=== PATIENT | female | born 1935 | race Two or more races ===

== ENCOUNTER → 2016-09-07 | Emergency (ER) | payer MEDICARE, OTHER ==
[~2016-09-07] VITALS: Ht 162.6 cm; Wt 72.6 kg
[~2016-09-07] MED LIST: ACETAMINOPHEN 160 MG/5 ML ONE; ACETAMINOPHEN 650 MG/20 ML UDC- FOR SA PATIENTS ONLY GT PRN; AMLO10TA2 PO; ASPI-605 PO; ATOR10TA PO; Acyclovir PO; BACL10TA PO; DOCU-170 PO; DONE10TA44 PO; FESO4TAB PO; GABA300C PO; IV SET PRIMARY PUMP SET 1 EA INFUS.SET MC ONE; LEVOFLOXACIN 750 MG /D5W 150ML 150 ML IV ONE; MEMA10TA PO; OMEG500C PO; SERT50TA PO; TRAZ-144 PO; TYL2T PO; VITA400C19 PO
[2016-09-07 15:59] LABS: BASOPHILS % (AUTO) 0.3 % (0.0-2.0); EOSINOPHILS % (AUTO) 1.5 % (0.0-6.0); HEMATOCRIT 37 % (33-45); HEMOGLOBIN 12.8 g/dL (11.5-14.8); LYMPHOCYTES # (AUTO) 0.7 /CMM (0.8-4.8); LYMPHOCYTES % (AUTO) 21.5 % (20.0-44.0); MEAN CORPUSCULAR HEMOGLOBIN 31 PG (26.0-33.0); MEAN CORPUSCULAR HGB CONC 34 g/dl (31.0-36.0); MEAN CORPUSCULAR VOLUME 90 fL (82-100); MONOCYTES # (AUTO) 0.2 /CMM (0.1-1.30); MONOCYTES % (AUTO) 5.5 % (2.0-12.0); NEUTROPHILS # (AUTO) 2.2 /CMM (1.8-8.9); NEUTROPHILS % (AUTO) 71.2 % (43.0-81.0); PLATELET COUNT (AUTO) 142 /CMM (150-450); RDW COEFFICIENT OF VARIATION 13.7 (11.5-15.0); RED BLOOD CELL COUNT(AUTO) 4.16 MIL/uL (4.0-5.2); WHITE BLOOD COUNT (AUTO) 3.1 K/uL (4.3-11.0)
--- NOTE | 2016-09-07 16:00 | NUR ---
PT REC'D TO ER VIA EMS PT COMES FROM HOME LIVES WITH SON . PT HAS HX DEMENTIA DOENT SPEAK . GITUBE ABD EXTREMITES VERY CONTRATED . CAPONE CATH INPLACE UA CLOUDY SENT TO LAB . SON STATED PT HAD UTI 4N WEEKS AGO/. LEFT ARM DOSENT MOVE NEW TO FAMILY IV STARTED RT AC 22G IVP AND LEFT AC 18G LABS AND BLOOD CULTURES DONE RECTAL TEMP 99.4 SKIN WARM TO TOUCH RECTUM HEALED ULCER . NO BM TODAY .AWAITING EVALUATION BY ER PROVIDER.
[2016-09-07 16:01] LABS: APPEARANCE,URINE SL CLOUDY (CLEAR); BILIRUBIN,URINE NEGATIVE (NEGATIVE); BLOOD, URINE TRACE Ery/uL (NEGATIVE); COLOR,URINE YELLOW (YELLOW); KETONES,URINE NEGATIVE (NEGATIVE); LEUKOCYTE ESTERASE ,URINE 3+ (NEGATIVE); NITRITE, URINE POSITIVE (NEGATIVE); PH,URINE 7.5 (5.0-8.0); PROTEIN,URINE NEGATIVE (NEGATIVE); UGLUCOSE NEGATIVE (NEGATIVE); UROBILINOGEN,URINE 0.2 EU/dL (0.2)
[2016-09-07 16:04] LABS: ALANINE AMINOTRANSFERASE 17 U/L (12-78); ALBUMIN 3.9 g/dL (3.4-5.0); ALKALINE PHOSPHATASE 68 U/L (46-116); ASPARTATE AMINOTRANSFERASE 17 U/L (15-37); BILIRUBIN,DIRECT 0.1 mg/dL (0.0-0.2); BILIRUBIN,TOTAL 0.4 mg/dL (0.2-1.0); CARBON DIOXIDE 31 mmol/L (21-32); CHLORIDE 103 mmol/L (98-107); CREATININE 0.7 mg/dL (0.6-1.3); GLUCOSE 129 mg/dL (74-106); POTASSIUM 4.5 mmol/L (3.5-5.1); SODIUM SERUM 142 mmol/L (136-145); TOTAL PROTEIN, SERUM 7.5 g/dL (6.4-8.2); UREA NITROGEN, BLOOD 14 mg/dL (7-18)
[2016-09-07 16:07] LABS: TROPONIN I < 0.017 ng/mL (0.00-0.056)
[2016-09-07 16:30] LABS: BACTERIA,URINE 3+ /HPF (None Seen); SQUAMOUS EPITHELIAL CELL,UR 0-2 /HPF (None Seen)
[2016-09-07 16:31] LABS: INR 0.96 (0.87-1.13); PROTHROMBIN TIME 10.3 SECS (9.5-12.7)
--- NOTE | 2016-09-07 16:47 | NUR ---
PT BACK FROM CT RA 97 SATS FAMILY AT BEDSIDE . LEAVQUIN GIVEN PER MD ORDER AWAITING EVALUATION BY ER PROVIDER.
[2016-09-07 16:48] VITALS: BP 140/70
--- NOTE | 2016-09-07 17:08 | NUR ---
PER FAMILY, PT'S PRIMARY PHYSICIAN IS DR CHELSEA CHENG. CALLED DR CHENG, TRANSFERRED TO DR ELAM
--- NOTE | 2016-09-07 17:27 | NUR ---
ARRANGED FOR BLS WITH [facility]. ETA 20 MINUTES
--- NOTE | 2016-09-09 15:19 | NUR ---
Urine culture shows + for E. Coli ESBL: resistant to Levaquin (the patient was given prescription Levaquin in the ER and disharged home) - the patient is also under HOSPICE care called the patient's - [facility]- [phone] called the PMRao Velazquez MD - [phone]; spoke to the national secretary with orders to fax the urine culture results to - [phone] called [facility] (Hospice company) at [phone]- I spoke to Yamile; she ordered to have the urine culture results be faxed to [phone]
== END | disposition home or self-care (01) ==
LOC: ER 15:31
DX: N39.0 Urinary tract infection, site not specified (principal); Z88.0 Allergy status to penicillin; E78.5 Hyperlipidemia, unspecified; F03.90 Unspecified dementia, unspecified severity, without behavioral disturbance, psychotic disturbance, mood disturbance, and anxiety; Z79.82 Long term (current) use of aspirin
CPT/HCPCS: 36415; 70450-TC; 71010-TC; 80048-TC; 80076-TC; 81000-TC; 83605-TC; 84484-TC; 85025-TC; 85730-TC; 87040-TC; 87081-TC; 87086-TC; 87186-TC; A4606; J1956; Z7610

== ENCOUNTER 2016-11-09 18:47 | Inpatient (IN) | payer MEDICARE, OTHER ==
[~2016-11-09] VITALS: Ht 160 cm; Wt 71.7 kg
[~2016-11-09 18:47] MED LIST changes: -ACETAMINOPHEN 160 MG/5 ML ONE; -ACETAMINOPHEN 650 MG/20 ML UDC- FOR SA PATIENTS ONLY GT PRN; +ASPI-605 GT; -ASPI-605 PO; -IV SET PRIMARY PUMP SET 1 EA INFUS.SET MC ONE; -LEVOFLOXACIN 750 MG /D5W 150ML 150 ML IV ONE; +SERT50TA GT; -SERT50TA PO
--- NOTE | 2016-11-09 18:52 | NUR ---
JONATHAN 88FROM PMD OFFICE FOR VERIFICATION ON PRESCRIBED ABX FROM PMD. PT ON HOSPICE AND DNR ON POLST. AWAITING MD ORDER
--- NOTE | 2016-11-09 19:03 | NUR ---
DR. GOODEN AT BEDSIDE FOR EVAL.
--- NOTE | 2016-11-09 19:04 | NUR ---
GAVE REPORT TO JOSÉ ANTONIO FOR DANIEL
[2016-11-09] MEDS ORDERED: AZTREONAM 2 G in IV NS 0.9% 100 ML IV ONE (19:30)
[2016-11-09] MEDS ORDERED: VANCOMYCIN 1 GM in IV D5W 250 ML IV ONE (19:30)
[2016-11-09] MEDS ORDERED: IV NS 0.9% 1,000 ML BAG IV ONE (19:30)
[2016-11-09 19:31] LABS: BASOPHILS % (AUTO) 0.2 % (0.0-2.0); EOSINOPHILS # (AUTO) 0.1 /CMM (0.0-0.7); HEMATOCRIT 36 % (33-45); HEMOGLOBIN 12.3 g/dL (11.5-14.8); LYMPHOCYTES % (AUTO) 18.8 % (20.0-44.0); MEAN CORPUSCULAR HEMOGLOBIN 31 PG (26.0-33.0); MEAN CORPUSCULAR HGB CONC 34 g/dl (31.0-36.0); MEAN CORPUSCULAR VOLUME 92 fL (82-100); MONOCYTES # (AUTO) 0.4 /CMM (0.1-1.30); MONOCYTES % (AUTO) 7.8 % (2.0-12.0); NEUTROPHILS # (AUTO) 3.9 /CMM (1.8-8.9); NEUTROPHILS % (AUTO) 72.2 % (43.0-81.0); PLATELET COUNT (AUTO) 139 /CMM (150-450); RDW COEFFICIENT OF VARIATION 14.3 (11.5-15.0); RED BLOOD CELL COUNT(AUTO) 3.96 MIL/uL (4.0-5.2); WHITE BLOOD COUNT (AUTO) 5.4 K/uL (4.3-11.0)
[2016-11-09] MEDS ORDERED: AZTREONAM 1 G VIAL ONE (19:41)
[2016-11-09 19:44] LABS: CALCIUM, SERUM 9.2 mg/dL (8.5-10.1); CARBON DIOXIDE 30 mmol/L (21-32); CHLORIDE 101 mmol/L (98-107); CREATININE 0.9 mg/dL (0.6-1.3); GLUCOSE 88 mg/dL (74-106); POTASSIUM 4.2 mmol/L (3.5-5.1); SODIUM SERUM 139 mmol/L (136-145); UREA NITROGEN, BLOOD 17 mg/dL (7-18)
[2016-11-09 19:48] LABS: TROPONIN I < 0.017 ng/mL (0.00-0.056)
[2016-11-09 19:50] LABS: ALANINE AMINOTRANSFERASE 19 U/L (12-78); ALBUMIN 4.1 g/dL (3.4-5.0); ALKALINE PHOSPHATASE 61 U/L (46-116); ASPARTATE AMINOTRANSFERASE 17 U/L (15-37); BILIRUBIN,DIRECT 0.1 mg/dL (0.0-0.2); BILIRUBIN,TOTAL 0.3 mg/dL (0.2-1.0); TOTAL PROTEIN, SERUM 7.6 g/dL (6.4-8.2)
--- NOTE | 2016-11-09 19:55 | NUR ---
COLLECTED URINE VIA F/C PER MD. CALLED LAB FOR OPERATOR COATING FURNACE.
[2016-11-09 20:00] LABS: APPEARANCE,URINE Clear (CLEAR); BILIRUBIN,URINE Negative (NEGATIVE); BLOOD, URINE Negative Ery/uL (NEGATIVE); COLOR,URINE Yellow (YELLOW); KETONES,URINE Negative (NEGATIVE); LEUKOCYTE ESTERASE ,URINE Large (NEGATIVE); NITRITE, URINE Positive (NEGATIVE); PROTEIN,URINE Negative (NEGATIVE); UGLUCOSE Negative (NEGATIVE); UROBILINOGEN,URINE 0.2 EU/dL (0.2)
[2016-11-09 20:16] LABS: RBC,URINE NONE SEEN /HPF (0-2)
[2016-11-09 20:17] LABS: BACTERIA,URINE Many /HPF (None Seen); SQUAMOUS EPITHELIAL CELL,UR Moderate /HPF (None Seen); WBC,URINE 81-100 /HPF (0-3)
--- NOTE | 2016-11-09 20:28 | NUR ---
PT DAUGHTER REQUESTING PAIN MEDICATION FOR PT, STATING PT IS MOANING AND TURNING RED ALL DAY. DR. GOODEN NOTIFIED.
[2016-11-09 20:34] LABS: INR 1.01 (0.87-1.13); PROTHROMBIN TIME 10.8 SECS (9.5-12.7)
[2016-11-09] MEDS ORDERED: KETOROLAC TROMETHAMINE 15 MG/ML VIAL ONE (20:53)
--- NOTE | 2016-11-09 20:56 | NUR ---
308-2 MS UPDATED BED
[2016-11-09] MEDS ORDERED: KETOROLAC TROMETHAMINE INJ 30 MG/ML VIAL IV ONE (21:00)
[2016-11-09] MEDS ORDERED: MORP30TA GT (21:27)
[2016-11-09] MEDS ORDERED: LORA1TAB82 GT ×2 (21:27)
[2016-11-09] MEDS ORDERED: LEVO500T90 GT (21:27)
[2016-11-09] MEDS ORDERED: CARI350T GT (21:27)
[2016-11-09] MEDS ORDERED: HYDR-548 GT (21:27)
[2016-11-09] MEDS ORDERED: OMEP40CA37 GT (21:27)
[2016-11-09] MEDS ORDERED: SULF1TAB48 GT (21:27)
--- NOTE | 2016-11-09 21:43 | NUR ---
REPORT GIVEN TO FELICIA CRUZ.
--- NOTE | 2016-11-09 21:49 | NUR ---
[facility]
[2016-11-09] MEDS ORDERED: ONDANSETRON HCL/PF 4 MG/2 ML VIAL IV PRN (22:00)
[2016-11-09] MEDS ORDERED: MORPHINE SULFATE INJ 2 MG/ML DISP.SYRIN IV PRN (22:00)
[2016-11-09] MEDS ORDERED: ACETAMINOPHEN 325 MG TABLET PO PRN (22:00)
[2016-11-09] MEDS ORDERED: AMLO10TA2 GT (22:20)
--- NOTE | 2016-11-09 22:20 | NUR ---
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 IV ON RIGHT WRIST IS PATENT AND INTACT, WILL CONNECT THE FLUID. CAPONE CATH PRESENT WITH CLEAR YELLOW URINE WITH SMALL SEDIMENT. SACRAL WOUND NOTED, PICTURE TAKE AND PUT IT IN THE CHART, APPLIED MEPILEX WELL. G TUBE IS PATENT AND FLUSHED WITH WATER, CHANGED DRESSING. SRX2, BED IN LOW POSITION, CALL LIGHT WITHIN REACH, WILL CONTINUE TO MONITOR PATIENT.
[2016-11-09] MEDS ORDERED: IV NS 0.9% 1,000 ML IV SCH (22:30)
[2016-11-09] MEDS ORDERED: IV NS 0.9% 50 ML IV SCH (22:30)
[2016-11-09] MEDS ORDERED: LORAZEPAM INJ 2 MG/ML VIAL ONE (22:39)
[2016-11-09] MEDS ORDERED: ENOXAPARIN SODIUM 40 MG/0.4 ML DISP.SYRIN SQ ONE (22:40)
[2016-11-09] MEDS: ENOXAPARIN SODIUM 40 MG/0.4 ML DISP.SYRIN SQ SCH (22:40)
[2016-11-09] MEDS: LORAZEPAM INJ 2 MG/ML VIAL IV PRN (22:41)
--- NOTE | 2016-11-09 22:45 | NUR ---
MS RN NOTE PATIENT LOOKS ANXIOUS, BLUSHING, HAS LABORED BREATHING. ATIVAN 0.5MG IVP GIVEN. WILL MONITOR EFFECTIVENESS.
[2016-11-09 23:00] VITALS: BP 133/69
--- NOTE | 2016-11-09 23:00 | NUR ---
MS RN NOTE POLST PAPER OF DNR/COMFORT CARE ONLY PRESENT, HOSPICE CARE AT HOME, NO CODE STATUS ORDER FROM MD YET. FOLLOWED UP WITH PATIENT'S FAMILY REGARDING HER CODE STATUS, PER PATIENT'S DAUGHTER, SHE WANTS THE PATIENT TO BE IN FULL CODE DURING THE HOSPITALIZATION. WILL ENDORSE TO DAY SHIFT NURSE TO F/U WITH DR. CHENG. ALSO F/U WITH HER GT FEEDING AT HOME, AND PUT IT IN HOME MED RECON. DIETARY CONSULT ORDERED WELL.
[2016-11-09] MEDS ORDERED: HYDROCODONE/APAP 5/325MG 1 EACH TABLET ONE (23:19)
[2016-11-09] MEDS: HYDROCODONE/APAP 5/325MG 1 EACH TABLET PO PRN (23:22)
[2016-11-09] MEDS ORDERED: [UNRECOGNIZED DRUG - CODE] GT (23:30)
--- NOTE | 2016-11-09 23:30 | NUR ---
MS RN NOTE PER PATIENT'S FAMILY, PATIENT IS IN GENERALIZED PAIN, WANTS TO GIVE NORCO. NORCO 5-325MG GT GIVEN. WILL REASSESS EFFECTIVENESS.
--- NOTE | 2016-11-10 04:48 | NUR ---
MS RN NOTE PER INSTRUCTOR OF SOCIOLOGY, PRIMAXIN 500MG IV ABX IS NOT AVAILABLE DURING THE ELECTRIC TAPE SLITTER, UNABLE TO ADMINISTER IT FOR 0500.
[2016-11-10] MEDS ORDERED: IMIPENEM/CILASTATIN 500 MG in IV NS 0.9% 100 ML IV SCH (05:00)
--- NOTE | 2016-11-10 06:42 | NUR ---
MS RN NOTE PATIENT IS RESTING IN BED COMFORTABLY, NO S/S OF RESPIRATORY DISTRESS AND NO FACIAL GRIMACE AT THIS TIME. IV ON RIGHT WRIST IS PATENT AND INTACT, FLUID IS RUNNING. WILL ENDORSE TO DAY SHIFT NURSE FOR DANIEL.
--- NOTE | 2016-11-10 07:05 | NUR ---
MS RN INITIAL NOTES REPORT RECEIVED AT THE BEDSIDE. PATIENT IS SLEEPING. NO SOB OR DISTRESS NOTED AT THIS TIME. PATIENT DOES NOT APPEAR TO BE IN PAIN, NO FACIAL GRIMACE NOTED. BED IN A LOW POSITION, CALL LIGHT IS WITHIN PATIENT REACH, FAMILY IS AT THE BEDSIDE. WILL CONTINUE TO MONITOR.
[2016-11-10] MEDS ORDERED: PANTOPRAZOLE 40 MG TABLET.DR PO SCH (07:30)
[2016-11-10] MEDS ORDERED: IV NS 0.9% 1,000 ML IV PRN (07:37)
[2016-11-10 08:00] VITALS: BP 132/66
--- NOTE | 2016-11-10 08:13 | NUR ---
WOUND CARE CONSULT: PT PRESENTS WITH STAGE 2 ULCER TO SACRUM, PRESENT ON ADMISSION. SOME THICKENED SCARRING NOTED TO AREA. PT HAS SEVERE CONTRACTURE OF LEFT LOWER EXTREMITY WITH SMALL SCAR TO LEFT HEEL. OFFLOADING DIFFICULT DUE TO SEVERE CONTRACTURE. ALL SKIN PROTECTION AND WOUND RECOMMENDATIONS DISCUSSED WITH NURSING STAFF. WILL SEE PRN. GUEVARA IN AGREEMENT WITH PLAN OF CARE. CURRENT TREVOR SCORE IS 9. FIRST STEP MATTRESS ORDERED. Addendum: 11/10/16 at 0816 by JOSY ASHFORD WNDNU Amended: Links added.
[2016-11-10] MEDS ORDERED: HYDROGEL DRESSING 90 GM TUBE TP PRN (08:30)
[2016-11-10] MEDS ORDERED: Z GUARD REMEDY 2 OZ OINT TP PRN (08:30)
[2016-11-10] MEDS: Z GUARD REMEDY 2 OZ OINT TP SCH (09:27)
[2016-11-10] MEDS: MEROPENEM 500 MG in IV NS 0.9% 50 ML IV SCH ×2 (09:27→21:28)
[2016-11-10] MEDS: BACLOFEN (10 MG) 10 MG TABLET PO SCH ×3 (09:28→16:25)
[2016-11-10] MEDS: CARISOPRODOL 350 MG TABLET GT SCH ×2 (09:28→16:24)
[2016-11-10] MEDS: HYDROGEL DRESSING 90 GM TUBE TP SCH (09:28)
[2016-11-10] MEDS: ASPIRIN 81 MG TAB.CHEW PO SCH (09:28)
[2016-11-10] MEDS: PANTOPRAZOLE 40 MG/PACK PACK GT SCH (09:28)
--- NOTE | 2016-11-10 11:20 | NUR ---
RN NOTES [facility] MATTRESS OVERLAY PLACED PER ORDER.
[2016-11-10] MEDS ORDERED: NUTREN PULMONARY 1,000 ML BAG GT PRN (12:30)
--- NOTE | 2016-11-10 12:30 | NUR ---
RN NOTES CALLED DR CHENG FOR ORDERS ON TUBE FEEDING AND TO INFORM OF MEDS THAT STILL NEED TO BE RECONCILED. MD STATES TO START ON NUTREEN AT 30ML/HR. MD STATES HE WILL DEAL WITH MEDS WHEN HE COMES TO SEE THE PATIENT THIS AFTERNOON.
--- NOTE | 2016-11-10 12:31 | NUR ---
RN NOTES ALSO EXPLAINED TO THE MD THAT THE PATIENT'S DAUGHTER WISHES TO HAVE THE PATIENT FULL CODE WHILE IN THE HOSPITAL. MD STATES TO MAKE PATIENT FULL CODE.
[2016-11-10 16:00] VITALS: BP 133/53
[2016-11-10] MEDS: HYDROCODONE/APAP 5/325MG 1 EACH TABLET PO PRN (16:25)
[2016-11-10] MEDS: LORAZEPAM INJ 2 MG/ML VIAL IV PRN (17:27)
[2016-11-10] MEDS ORDERED: HYDROCODONE/APAP 10/325MG 1 EA TABLET PO SCH (18:00)
--- NOTE | 2016-11-10 18:07 | NUR ---
RN NOTES DR CHENG ON FLOOR. INFORMED MD THAT PATIENT WAS GIVEN NORCO LESS THAN 2 HOURS AGO. MD CHANGED NORCO TO SCHEDULED. MD STATES TO SKIP THE DOSE AT 1800 AND TO WAIT FOR THE NEXT DOSE.
[2016-11-10] MEDS ORDERED: DOCUSATE SODIUM 100 MG CAPSULE PO SCH (18:30)
[2016-11-10] MEDS ORDERED: HYDROCODONE/APAP 5/325MG 1 EACH TABLET GT PRN (18:52)
[2016-11-10] MEDS: HYDROCODONE/APAP 10/325MG 1 EA TABLET GT SCH (18:53)
[2016-11-10] MEDS ORDERED: ACETAMINOPHEN 650 MG/20.3 ML UDC GT PRN (19:00)
--- NOTE | 2016-11-10 19:02 | NUR ---
MS RN CLOSING NOTES NO CHANGES IN PATIENT CONDITION THROUGHOUT THE SHIFT. NO SOB OR DISTRESS NOTED AT THIS TIME. PATIENT SLEEPING AND DOES NOT APPEAR TO BE IN PAIN. BED IN A LOW POSITION, CALL LIGHT WITHIN PATIENT REACH, FAMILY AT THE BEDSIDE. WILL ENDORSE FOR DANIEL.
[2016-11-10 20:00] VITALS: BP 115/52
--- NOTE | 2016-11-10 20:54 | NUR ---
MS RN INITIAL NOTE PT RECEIVED IN BED WITH CAREGIVER AT BEDSIDE. NON VERBAL WITH OPEN EYES. ON 3L OF O2 VIA NASAL CANNULA AND SATURATING AT 98%. NO C/O OF DISCOMFORT AT THIS TIME. BREATHING IS REGULAR, EVEN AND UNLABORED. IV INTACT, CLEAN AND FLUSHING WELL. GTUBE CLEAN, INTACT WITHOUT RESIDUALS NOTED AND FLUSHING WELL. CAPONE CATHETER IN PLACE AND DRAINING BY GRAVITY. ASPIRATION PRECAUTIONS OBSERVED. CALL LIGHT WITHIN REACH. WILL CONTINUE TO MONITOR.
[2016-11-10] MEDS: SERTRALINE HCL 50 MG TABLET GT SCH (21:28)
[2016-11-10] MEDS: LORAZEPAM 1 MG TABLET GT SCH (21:29)
[2016-11-10] MEDS: ENOXAPARIN SODIUM 40 MG/0.4 ML DISP.SYRIN SQ SCH (21:31)
[2016-11-11] MEDS: HYDROCODONE/APAP 10/325MG 1 EA TABLET GT SCH ×4 (00:06→18:20)
--- NOTE | 2016-11-11 06:57 | NUR ---
MS RN CLOSING NOTE PT REMAINED STABLE DURING SHIFT. CAREGIVER AT BEDSIDE. NO SOB NOTED. ALL DUE MEDS GIVEN ORDERED AND WELL TOLERATED. ALL SAFETY MEASURES IN PLACE. IV SITE INTACT AND PATENT. GTUBE IN PLACE AND NO RESIDUALS NOTED. CAPONE CATHETER IN PLACE. CALL LIGHT WITHIN REACH. WILL ENDORSE TO NEXT SHIFT FOR CONTINUITY OF CARE.
--- NOTE | 2016-11-11 07:05 | NUR ---
MS RN INITIAL NOTES REPORT RECEIVED AT THE BEDSIDE. PATIENT IS RESTING COMFORTABLY IN BED. NO SOB OR DISTRESS. PATIENT IS A LITTLE AGITATED AT THIS TIME. CAREGIVER STATES THIS IS PAIN BEHAVIOR; WILL FOLLOW UP WITH PAIN MEDICATIONS. BED IN A LOW POSITION, CALL CAREGIVER AT THE BEDSIDE. WILL CONTINUE TO MONITOR.
[2016-11-11 07:20] LABS: BASOPHILS % (AUTO) 0.9 % (0.0-2.0); EOSINOPHILS # (AUTO) 0.1 /CMM (0.0-0.7); EOSINOPHILS % (AUTO) 2.4 % (0.0-6.0); HEMATOCRIT 32 % (33-45); LYMPHOCYTES # (AUTO) 0.8 /CMM (0.8-4.8); LYMPHOCYTES % (AUTO) 26.5 % (20.0-44.0); MEAN CORPUSCULAR HEMOGLOBIN 32 PG (26.0-33.0); MEAN CORPUSCULAR HGB CONC 35 g/dl (31.0-36.0); MEAN CORPUSCULAR VOLUME 92 fL (82-100); MONOCYTES # (AUTO) 0.2 /CMM (0.1-1.30); MONOCYTES % (AUTO) 8.3 % (2.0-12.0); NEUTROPHILS # (AUTO) 1.8 /CMM (1.8-8.9); NEUTROPHILS % (AUTO) 61.9 % (43.0-81.0); PLATELET COUNT (AUTO) 119 /CMM (150-450); RDW COEFFICIENT OF VARIATION 14.4 (11.5-15.0); RED BLOOD CELL COUNT(AUTO) 3.48 MIL/uL (4.0-5.2); WHITE BLOOD COUNT (AUTO) 2.8 K/uL (4.3-11.0)
[2016-11-11 07:43] LABS: ALANINE AMINOTRANSFERASE 19 U/L (12-78); ALBUMIN 3.3 g/dL (3.4-5.0); ALKALINE PHOSPHATASE 55 U/L (46-116); ASPARTATE AMINOTRANSFERASE 19 U/L (15-37); BILIRUBIN,TOTAL 0.3 mg/dL (0.2-1.0); CALCIUM, SERUM 8.3 mg/dL (8.5-10.1); CARBON DIOXIDE 30 mmol/L (21-32); CHLORIDE 106 mmol/L (98-107); CREATININE 0.6 mg/dL (0.6-1.3); GLUCOSE 102 mg/dL (74-106); POTASSIUM 3.8 mmol/L (3.5-5.1); SODIUM SERUM 142 mmol/L (136-145); TOTAL PROTEIN, SERUM 6.4 g/dL (6.4-8.2); UREA NITROGEN, BLOOD 12 mg/dL (7-18)
[2016-11-11 07:56] LABS: THYROID STIMULATING HORMONE 2.203 uIU/mL (0.358-3.74)
[2016-11-11 08:00] VITALS: BP 144/68
[2016-11-11 08:22] LABS: BAND % (MANUAL) 5 % (0.0-5.0); EOSINOPHILS % (MANUAL) 3 % (0-4); LYMPHOCYTES % (MANUAL) 27 % (16-48); MONOCYTES % (MANUAL) 9 % (0-11.0); NEUTROPHILS % (MANUAL) 56 (42-76)
[2016-11-11] MEDS: DOCUSATE SODIUM LIQ 100 MG/10 ML UDC NG SCH ×2 (08:35→16:38)
[2016-11-11] MEDS: CARISOPRODOL 350 MG TABLET GT SCH ×2 (08:35→16:38)
[2016-11-11] MEDS: PANTOPRAZOLE 40 MG/PACK PACK GT SCH (08:35)
[2016-11-11] MEDS: ASPIRIN 81 MG TAB.CHEW PO SCH (08:35)
[2016-11-11] MEDS: AMLODIPINE BESYLATE 5 MG TABLET GT SCH (08:36)
[2016-11-11] MEDS: SENNOSIDES/DOCUSATE SODIUM 1 TAB TABLET GT SCH (08:36)
[2016-11-11] MEDS: BACLOFEN (10 MG) 10 MG TABLET GT SCH ×2 (08:36→16:38)
[2016-11-11] MEDS: MULTIVITAMINS,THERAGRAN 1 UDTAB TABLET GT SCH (08:36)
[2016-11-11] MEDS: ASCORBIC ACID 500 MG TABLET GT SCH (08:36)
[2016-11-11] MEDS: HYDROGEL DRESSING 90 GM TUBE TP SCH (08:37)
[2016-11-11] MEDS: Z GUARD REMEDY 2 OZ OINT TP SCH (08:37)
[2016-11-11] MEDS: MEROPENEM 500 MG in IV NS 0.9% 50 ML IV SCH ×2 (08:42→20:45)
[2016-11-11] MEDS: NUTREN PULMONARY 1,000 ML BAG GT PRN (15:24)
--- NOTE | 2016-11-11 15:55 | NUR ---
RN NOTES PATIENT PLACED UNDER ISOLATION FOR ESBL URINE. DR CHENG CALLED AND MADE AWARE. NO CHANGES IN PATIENT ABX TREATMENT. MD ALSO AWARE OF 2.8 WBC COUNT.
[2016-11-11 16:00] VITALS: BP 135/47
[2016-11-11] MEDS ORDERED: LORAZEPAM INJ 2 MG/ML VIAL IV PRN (18:00)
--- NOTE | 2016-11-11 18:41 | NUR ---
MS RN CLOSING NOTE NO SIGNIFICANT CHANGE IN PATIENT CONDITION THROUGHOUT THE SHIFT. NO SOB OR DISTRESS NOTED. PATIENT DOES NOT APPEAR TO BE IN PAIN, NO FACIAL GRIMACE NOTED. BED IN LOW POSITION, CAREGIVER AT THE BEDSIDE. WILL ENDORSE FOR DANIEL.
--- NOTE | 2016-11-11 19:45 | NUR ---
MS/RN OPENING NOTES PATIENT AWAKE, ALERTX1, HOB ELEVATED. FAMILY AT BEDSIDE. RESPIRATIONS EVEN AN UNLABORED. SKIN WARM TO TOUCH, ON GTUBE FEEDING RUNNING AT 40ML/HR, NO RESIDUAL, MONITORING FOR ANY S/S OF DISCOMFORT. ON PAIN MANAGEMENT MONITORING FOR EFFECTIVENESS.
[2016-11-11 20:00] VITALS: BP 125/68
[2016-11-11] MEDS: SERTRALINE HCL 50 MG TABLET GT SCH (21:31)
[2016-11-11] MEDS: LORAZEPAM 1 MG TABLET GT SCH (21:31)
[2016-11-11] MEDS: ENOXAPARIN SODIUM 40 MG/0.4 ML DISP.SYRIN SQ SCH (21:53)
--- NOTE | 2016-11-11 22:00 | NUR ---
ms/rn notes temperature at 99.2 deg f, patient provided cooling measures, tylenol prn given given, kept comfortable and will continue monitoring. Skin warm to touch.
[2016-11-12] MEDS: HYDROCODONE/APAP 10/325MG 1 EA TABLET GT SCH ×4 (00:38→18:07)
--- NOTE | 2016-11-12 06:22 | NUR ---
308-2 ms/rn closing notes patient hob elevated, able to sleep atleast 7 hours, respirations even and unlabored, reposition for comfort, skin warm to touch, gtube residual zero, patent, rosen cathether w/ urine output , on routine pain mgmt will endorse to am rn for ervin.
--- NOTE | 2016-11-12 07:40 | NUR ---
MS RN OPENING NOTE PATIENT IS ALERT AND ORIENTED x1. NON-VERBAL, OPENS EYES. CAREGIVER AT BEDSIDE. CALL LIGHT WITHIN REACH. SAFETY MEASURES AND ASPIRATION PRECAUTIONS IMPLEMENTED. IV INTACT AND PATENT NO REDNESS OR SWELLING NOTED, FLUSHES WELL. CAPONE CATHETER IN PLACE, NO CLOUDY APPEARANCE OR SEDIMENT NOTED. WOUND TREATMENT TO BE DONE AND WHEN SOILED. PATIENT HAS CONTRACTION ON LEFT ARM. G-TUBE INTACT AND PATENT NO REDNESS OR SWELLING, G-TUBE FEEDING RUNNING AT THIS TIME. NO FACIAL GRIMACING NOTED FOR PAIN. NO SOB OR DISTRESS NOTED. WILL CONTINUE TO MONITOR
[2016-11-12 07:48] LABS: BASOPHILS % (AUTO) 0.7 % (0.0-2.0); EOSINOPHILS # (AUTO) 0.1 /CMM (0.0-0.7); EOSINOPHILS % (AUTO) 2.1 % (0.0-6.0); HEMATOCRIT 34 % (33-45); HEMOGLOBIN 11.8 g/dL (11.5-14.8); LYMPHOCYTES # (AUTO) 0.8 /CMM (0.8-4.8); MEAN CORPUSCULAR HEMOGLOBIN 31 PG (26.0-33.0); MEAN CORPUSCULAR HGB CONC 34 g/dl (31.0-36.0); MEAN CORPUSCULAR VOLUME 91 fL (82-100); MONOCYTES # (AUTO) 0.3 /CMM (0.1-1.30); NEUTROPHILS % (AUTO) 64.2 % (43.0-81.0); PLATELET COUNT (AUTO) 120 /CMM (150-450); RDW COEFFICIENT OF VARIATION 14.5 (11.5-15.0); RED BLOOD CELL COUNT(AUTO) 3.78 MIL/uL (4.0-5.2); WHITE BLOOD COUNT (AUTO) 3.1 K/uL (4.3-11.0)
[2016-11-12 07:58] LABS: CALCIUM, SERUM 8.4 mg/dL (8.5-10.1); CARBON DIOXIDE 31 mmol/L (21-32); CHLORIDE 106 mmol/L (98-107); CREATININE 0.5 mg/dL (0.6-1.3); GLUCOSE 119 mg/dL (74-106); SODIUM SERUM 142 mmol/L (136-145); UREA NITROGEN, BLOOD 13 mg/dL (7-18)
[2016-11-12 08:00] VITALS: BP 140/84
[2016-11-12] MEDS: CARISOPRODOL 350 MG TABLET GT SCH ×2 (09:03→16:42)
[2016-11-12] MEDS: DOCUSATE SODIUM LIQ 100 MG/10 ML UDC NG SCH ×2 (09:03→16:42)
[2016-11-12] MEDS: ASPIRIN 81 MG TAB.CHEW PO SCH (09:04)
[2016-11-12] MEDS: PANTOPRAZOLE 40 MG/PACK PACK GT SCH (09:04)
[2016-11-12] MEDS: MULTIVITAMINS,THERAGRAN 1 UDTAB TABLET GT SCH (09:04)
[2016-11-12] MEDS: BACLOFEN (10 MG) 10 MG TABLET GT SCH ×2 (09:04→16:42)
[2016-11-12] MEDS: SENNOSIDES/DOCUSATE SODIUM 1 TAB TABLET GT SCH (09:04)
[2016-11-12] MEDS: ASCORBIC ACID 500 MG TABLET GT SCH (09:04)
[2016-11-12] MEDS: HYDROGEL DRESSING 90 GM TUBE TP SCH (09:05)
[2016-11-12] MEDS: Z GUARD REMEDY 2 OZ OINT TP SCH (09:05)
[2016-11-12] MEDS: AMLODIPINE BESYLATE 5 MG TABLET GT SCH (09:06)
[2016-11-12] MEDS: MEROPENEM 500 MG in IV NS 0.9% 50 ML IV SCH ×2 (09:14→21:38)
[2016-11-12 16:00] VITALS: BP 161/70
[2016-11-12] MEDS: NUTREN PULMONARY 1,000 ML BAG GT PRN (16:42)
--- NOTE | 2016-11-12 18:49 | NUR ---
MS RN CLOSING NOTE PATIENT IS ALERT x1. OPENS EYES AND IS NON-VERBAL. PATIENT HAS CAREGIVER AND FAMILY AT BEDSIDE. IV INTACT AND PATENT NO REDNESS OR SWELLING NOTED. FLUSHES WELL. NO IVF RUNNING AT THIS TIME. ALL DUE MEDICATIONS GIVEN ORDERED. CALL LIGHT WITHIN REACH AT ALL TIMES. SAFETY MEASURES IMPLEMENTED. PATIENT IS CONTRACTED. WOUND TREATMENT DONE-HYDROGEL WITH MEPILEX. G-TUBE SITE INTACT AND PATENT, NO REDNESS NOTED. G-TUBE FEEDING RUNNING AT 40 ML/HR. TOLERATING WELL, NO RESIDUAL. REPOSITIONED AND TURNED THROUGHOUT SHIFT. WILL ENDORSE TO SCORER HELPER NURSE FOR DANIEL
[2016-11-12 20:00] VITALS: BP 154/70
--- NOTE | 2016-11-12 20:00 | NUR ---
MS MARTIN INITIAL NOTES RECEIVED REPORT FROM AM NURSE , CHECKED AND MET HER SON AT THE BEDSIDE. PT IS AWAKE , NON-VERBAL BUT NOT IN ANY ACUTE DISTRESS NOTED. BREATHING EVEN AND NON-LABORED, STILL WITH O2 AT 2 LITERS VIA NC. SHE ALSO ON G-TUBE FEEDING NUTREN AT 40ML/HR , NO RESIDUAL NOTED AT THIS TIME. PER SON PT HAVE 24 HRS CAREGIVER . ON ISOLATION PRECAUTION IMPLEMENTED AND OBSERVED. EDUCATE THE CAREGIVER AND SON REGARDING ISOLATION AND THEY UNDERSTOOD WELL. KEPT PT WARM AND COMFORTABLE AT ALL TIMES. WILL CONTINUE TO MONITOR.
[2016-11-12] MEDS: SERTRALINE HCL 50 MG TABLET GT SCH (22:00)
[2016-11-12] MEDS: LORAZEPAM 1 MG TABLET GT SCH (22:00)
[2016-11-12] MEDS: ENOXAPARIN SODIUM 40 MG/0.4 ML DISP.SYRIN SQ SCH (22:01)
--- NOTE | 2016-11-13 | NUR ---
MS MARTIN NOTES PT SLEEPING COMFORTABLY IN BED WITHOUT ANY ACUTE DISTRESS NOTED OR ANY DISCOMFORT. G-TUBE FEEDING TOLERATED WELL NO ASPIRATION NOTED. CAREGIVER AT THE BEDSIDE SLEEPING WELL. KEPT PT WARM AND COMFORTABLE AT ALL TIMES. WILL CONTINUE TO MONITOR. PLACE CALL LIGHT AT REACH.
[2016-11-13] MEDS: HYDROCODONE/APAP 10/325MG 1 EA TABLET GT SCH ×4 (01:58→20:56)
--- NOTE | 2016-11-13 07:05 | NUR ---
MS ROLL COATING MACHINE OPERATOR CLOSING NOTES PT BACK TO REST AFTER MORNING CARE DONE , RESPIRATION EVEN AND NON-LABORED, MORNING CARE DONE WELL WOUND TREATMENT. NO SIGNS OF ANY ACUTE DISTRESS NOTED. G-TUBE FEEDING TOLERATED WELL , NO ASPIRATION NOTED. REPOSITION HER FOR COMFORT. SAFETY PRECAUTION AND ISOLATION IMPLEMENTED AND OBSERVED. WILL ENDORSE TO AM NURSE FOR CONTINUITY OF CARE.
--- NOTE | 2016-11-13 07:10 | NUR ---
MS RN Notes: Patient resting in bed. Patient nonverbal. Arousable to touch and name. Non-labored breathing noted. No facial grimacing noted. IV site at right wrist patent and intact. Caregiver at site. Bed in lowest locked position. Call light within reach. Will continue to monitor.
[2016-11-13 07:12] LABS: BASOPHILS % (AUTO) 0.3 % (0.0-2.0); EOSINOPHILS # (AUTO) 0.1 /CMM (0.0-0.7); HEMATOCRIT 34 % (33-45); HEMOGLOBIN 11.7 g/dL (11.5-14.8); LYMPHOCYTES # (AUTO) 0.8 /CMM (0.8-4.8); LYMPHOCYTES % (AUTO) 22.8 % (20.0-44.0); MEAN CORPUSCULAR HEMOGLOBIN 32 PG (26.0-33.0); MEAN CORPUSCULAR HGB CONC 35 g/dl (31.0-36.0); MEAN CORPUSCULAR VOLUME 91 fL (82-100); MONOCYTES # (AUTO) 0.3 /CMM (0.1-1.30); MONOCYTES % (AUTO) 7.8 % (2.0-12.0); NEUTROPHILS # (AUTO) 2.4 /CMM (1.8-8.9); NEUTROPHILS % (AUTO) 67.1 % (43.0-81.0); PLATELET COUNT (AUTO) 124 /CMM (150-450); RDW COEFFICIENT OF VARIATION 14.6 (11.5-15.0); WHITE BLOOD COUNT (AUTO) 3.6 K/uL (4.3-11.0)
[2016-11-13 07:17] LABS: CALCIUM, SERUM 8.8 mg/dL (8.5-10.1); CARBON DIOXIDE 30 mmol/L (21-32); CHLORIDE 105 mmol/L (98-107); CREATININE 0.4 mg/dL (0.6-1.3); GLUCOSE 113 mg/dL (74-106); POTASSIUM 3.9 mmol/L (3.5-5.1); SODIUM SERUM 141 mmol/L (136-145); UREA NITROGEN, BLOOD 14 mg/dL (7-18)
[2016-11-13 08:00] VITALS: BP 135/54
[2016-11-13] MEDS: AMLODIPINE BESYLATE 5 MG TABLET GT SCH (08:24)
[2016-11-13] MEDS: ASCORBIC ACID 500 MG TABLET GT SCH (08:24)
[2016-11-13] MEDS: PANTOPRAZOLE 40 MG/PACK PACK GT SCH (08:24)
[2016-11-13] MEDS: SENNOSIDES/DOCUSATE SODIUM 1 TAB TABLET GT SCH (08:25)
[2016-11-13] MEDS: DOCUSATE SODIUM LIQ 100 MG/10 ML UDC NG SCH ×2 (08:25→16:14)
[2016-11-13] MEDS: MEROPENEM 500 MG in IV NS 0.9% 50 ML IV SCH ×2 (08:34→20:56)
[2016-11-13] MEDS: ASPIRIN 81 MG TAB.CHEW PO SCH (09:47)
[2016-11-13] MEDS: BACLOFEN (10 MG) 10 MG TABLET GT SCH ×2 (09:47→16:14)
[2016-11-13] MEDS: CARISOPRODOL 350 MG TABLET GT SCH ×2 (09:47→16:14)
[2016-11-13] MEDS: MULTIVITAMINS,THERAGRAN 1 UDTAB TABLET GT SCH (09:47)
[2016-11-13] MEDS: HYDROGEL DRESSING 90 GM TUBE TP SCH (09:48)
[2016-11-13] MEDS: Z GUARD REMEDY 2 OZ OINT TP SCH (09:49)
[2016-11-13] MEDS: NUTREN PULMONARY 1,000 ML BAG GT PRN (12:45)
[2016-11-13 16:00] VITALS: BP 130/60
--- NOTE | 2016-11-13 19:10 | NUR ---
MS RN Closing Notes: Patient resting in bed. Patient nonverbal. Arousable to touch and name. Non-labored breathing noted. No facial grimacing noted. IV site at right wrist patent and intact. Family at bedside. Bed in lowest locked position. Call light within reach. Patient kept clean and comfortable during shift. Turned and repositioned every 2 hours. Wound dressing change done. endorsed to next shift.
--- NOTE | 2016-11-13 19:30 | NUR ---
MS RN OPENING NOTES: PATIENT IN BED, AWAKE, OPENS EYES SPONTANEOUSLY BUT NON VERBAL, APPEARS CALM AND IN NO DISTRESS, SON AT BEDSIDE. ON O2 AT 3 LPM VIA NC, BREATHING EVEN AND UNLABORED. BREATH SOUNDS CLEAR TO AUSCULTATION. PATIENT HAS G TUBE ATTACHED TO FEEDING OF NUTREN PULMO ARIELA RUNNING AT 40 ML/HR, NO RESIDUALS NOTED. CAPONE CATHETER IN PLACE DRAINING CLEAR YELLOW URINE. PROVIDED FOR COMFORT AND SAFETY. BED IN LOWEST NAD LOCKED POSITION, SIDERAILS UP X3. BED ALARMS ON. WILL CONT TO MONITOR.
[2016-11-13 19:57] VITALS: BP 149/66
[2016-11-13 20:00] VITALS: BP 149/66
[2016-11-13] MEDS: LORAZEPAM 1 MG TABLET GT SCH (22:13)
[2016-11-13] MEDS: SERTRALINE HCL 50 MG TABLET GT SCH (22:13)
[2016-11-13] MEDS: ENOXAPARIN SODIUM 40 MG/0.4 ML DISP.SYRIN SQ SCH (22:13)
[2016-11-14] MEDS: HYDROCODONE/APAP 10/325MG 1 EA TABLET GT SCH ×5 (02:56→21:00)
--- NOTE | 2016-11-14 07:07 | NUR ---
MS RN CLOSING NOTES: PATIENT IN BED, ASLEEP AT THIS TIME. O2 AT 3 LPM VIA NC, BREATHING EVEN AND UNLABORED. PIV OVER R WRIST G18 INTACT AND PATENT TO FLUSH. WITH G TUBE FEEDING OF NUTREN PULMO RUNNING AT 40 ML/HR, PATIETN TOLERATING FEEDING WELL. CAPONE CATHETER DRAINING DARK YELLOW URINE. DUE EMDS GIVEN. WOUND TREATMENT DONE OVER SACRAL WOUND. TURNED AND REPOSITIONED PATIENT Q 2 HRS. PROVIDED FOR COMFORT AND SAFETY. BED IN LOWEST AND LOCKED POSITION, SIDERAILS UP X3. SON AT BEDSIDE. WILL ENDORSE TO AM RN FOR DANIEL.
--- NOTE | 2016-11-14 07:25 | NUR ---
RN OPEN NOTES RECEIVED REPORT FROM CAMP BOSS NURSE. PATIENT IS IN BED WITH HIS EYES CLOSED. SON IS AT BEDSIDE. EASILY AROUSED TO LIGHT TOUCH. BED IN LOW POSITION, LOCKED AND TWO SIDE RAILS ARE UP. WILL CONTINUE TO ASSESS AND MONITOR PATIENT.
[2016-11-14 08:00] VITALS: BP 129/54
[2016-11-14] MEDS: MEROPENEM 500 MG in IV NS 0.9% 50 ML IV SCH (08:38)
[2016-11-14] MEDS: BACLOFEN (10 MG) 10 MG TABLET GT SCH ×2 (08:38→16:04)
[2016-11-14] MEDS: ASCORBIC ACID 500 MG TABLET GT SCH (08:39)
[2016-11-14] MEDS: ASPIRIN 81 MG TAB.CHEW PO SCH (08:39)
[2016-11-14] MEDS: SENNOSIDES/DOCUSATE SODIUM 1 TAB TABLET GT SCH (08:39)
[2016-11-14] MEDS: AMLODIPINE BESYLATE 5 MG TABLET GT SCH (08:39)
[2016-11-14] MEDS: PANTOPRAZOLE 40 MG/PACK PACK GT SCH (08:39)
[2016-11-14] MEDS: MULTIVITAMINS,THERAGRAN 1 UDTAB TABLET GT SCH (08:39)
[2016-11-14] MEDS: Z GUARD REMEDY 2 OZ OINT TP SCH (08:40)
[2016-11-14] MEDS: DOCUSATE SODIUM LIQ 100 MG/10 ML UDC NG SCH ×2 (08:40→16:04)
[2016-11-14] MEDS: CARISOPRODOL 350 MG TABLET GT SCH ×2 (08:40→16:04)
[2016-11-14] MEDS: HYDROGEL DRESSING 90 GM TUBE TP SCH (08:41)
--- NOTE | 2016-11-14 14:45 | NUR ---
DR CHENG AT BEDSIDE
[2016-11-14] MEDS: NUTREN PULMONARY 1,000 ML BAG GT PRN (16:04)
--- NOTE | 2016-11-14 18:28 | NUR ---
RN CLOSING NOTES PATIENT IN BED, ALERT AND ORIENTED TO SELF ONLY. NON VERBAL. FAMILY AT BEDSIDE. O2 AT 3 LPM VIA NC, BREATHING EVEN AND UNLABORED. IV SITE IS INTACT AND PATENT ON THE RIGHT WRIST 18G, HL. ALL NURSING CARE PROVIDED FOR COMFORT AND SAFETY. DUE MEDS GIVEN. BED IN LOWEST AND LOCKED POSITION, TWO SIDE RAILS ARE UP AND CALL LIGHT WITHIN REACH. POSSIBLE DISCHARGE TOMORROW IN AM. WILL ENDORSE TO NIGHT RN FOR DANIEL.
--- NOTE | 2016-11-14 19:30 | NUR ---
MS NR OPENING NOTES: PATIENT IN BED, AWAKE BUT NON VERBAL. ON O2 AT 3 LPM VIA NC, BREATHING EVEN AND UNLABORED. BREATH SOUNDS CLEAR TO AUSCULTATION. APPEARS CALM AND IN NO DISTRESS. PIV OVER R WRIST G 18 INTACT AND PATENT TO FLUSH. CAPONE CATHETER IN PLACE DRAINING CLEAR YELLOW URINE. WITH GTUBE FEEDING OF NUTREN PULMO RUNNING AT 40 ML/HR. PROVIDED FOR COMFORT AND SAFETY, BED IN LOWEST AND LOCKED POSITION, SIDERAILS UPX3. DAUGHTER AT BEDSIDE. WILL CONT TO MONITOR.
[2016-11-14 20:00] VITALS: BP 131/63
[2016-11-14] MEDS: MEROPENEM 1 G in IV NS 0.9% 100 ML IV SCH (21:30)
--- NOTE | 2016-11-14 21:31 | NUR ---
RN NOTES; PATIENT IS CALM AND RELAXED. FAMILY REFUSED TO HAVE SCHEDULED NORCO GIVEN TO HER AT THIS TIME.
[2016-11-14] MEDS: LORAZEPAM 1 MG TABLET GT SCH (22:22)
[2016-11-14] MEDS: SERTRALINE HCL 50 MG TABLET GT SCH (22:22)
[2016-11-14] MEDS: ENOXAPARIN SODIUM 40 MG/0.4 ML DISP.SYRIN SQ SCH (22:24)
[2016-11-15] MEDS: HYDROCODONE/APAP 10/325MG 1 EA TABLET GT SCH ×3 (03:00→15:50)
--- NOTE | 2016-11-15 03:00 | NUR ---
RN NOTES: PATIENT IS ASLEEP AT THIS TIME. DAUGHTER REQUESTED FOR NORCO 10-325 MG PO NOT TO BE GIVEN AT THIS TIME, SAYING THAT SHE WANTS HER MOTHER TO SLEEP.
--- NOTE | 2016-11-15 06:39 | NUR ---
MS RN CLOSING NOTES: PATIENT IN BED, AWAKE BUT NON VERBAL, ON O2 AT 3 LPM VIA NC, BREATHING EVEN AND UNLABORED. ON GTUBE FEEDING OF NUTREN AT 40 CC/HR, TOLERATED FEEDING WELL, NO RESIDUALS NOTED. PIV OVER R WRIST G18 INTACT AND PATENT TO FLUSH. CAPONE CATHETER IN PLACE DRAINING CLEAR YELLOW URINE. DUE MEDS GIVEN. PROVIDED FOR COMFORT AND SAFETY. NO ACUTE CHANGE IN CONDITION NOTED THROUGH SHIFT. WILL ENDORSE TO AM RN FOR DANIEL.
[2016-11-15 06:46] LABS: BASOPHILS % (AUTO) 0.3 % (0.0-2.0); EOSINOPHILS # (AUTO) 0.1 /CMM (0.0-0.7); EOSINOPHILS % (AUTO) 2.2 % (0.0-6.0); HEMATOCRIT 34 % (33-45); HEMOGLOBIN 11.7 g/dL (11.5-14.8); LYMPHOCYTES # (AUTO) 0.9 /CMM (0.8-4.8); LYMPHOCYTES % (AUTO) 20.3 % (20.0-44.0); MEAN CORPUSCULAR HEMOGLOBIN 31 PG (26.0-33.0); MEAN CORPUSCULAR HGB CONC 34 g/dl (31.0-36.0); MEAN CORPUSCULAR VOLUME 92 fL (82-100); MONOCYTES # (AUTO) 0.3 /CMM (0.1-1.30); NEUTROPHILS % (AUTO) 70.2 % (43.0-81.0); PLATELET COUNT (AUTO) 128 /CMM (150-450); RDW COEFFICIENT OF VARIATION 14.5 (11.5-15.0); RED BLOOD CELL COUNT(AUTO) 3.75 MIL/uL (4.0-5.2); WHITE BLOOD COUNT (AUTO) 4.3 K/uL (4.3-11.0)
[2016-11-15 07:14] LABS: ALANINE AMINOTRANSFERASE 37 U/L (12-78); ALBUMIN 3.3 g/dL (3.4-5.0); ALKALINE PHOSPHATASE 56 U/L (46-116); ASPARTATE AMINOTRANSFERASE 26 U/L (15-37); BILIRUBIN,TOTAL 0.2 mg/dL (0.2-1.0); CALCIUM, SERUM 8.9 mg/dL (8.5-10.1); CARBON DIOXIDE 34 mmol/L (21-32); CHLORIDE 106 mmol/L (98-107); CREATININE 0.4 mg/dL (0.6-1.3); GLUCOSE 108 mg/dL (74-106); SODIUM SERUM 142 mmol/L (136-145); TOTAL PROTEIN, SERUM 6.4 g/dL (6.4-8.2); UREA NITROGEN, BLOOD 16 mg/dL (7-18)
--- NOTE | 2016-11-15 07:30 | NUR ---
RECEIVED PT. IN AM [id number] TO BE AWRE FAMILY MEMBERS IN RM.G-TUBE INFUSING.
[2016-11-15 08:00] VITALS: BP 143/67
--- NOTE | 2016-11-15 08:20 | NUR ---
DR. CHENG IN,ORDERS GIVEN RXS WRITTEN OUT.PLANS FOR DC TODAY.
[2016-11-15] MEDS: DOCUSATE SODIUM LIQ 100 MG/10 ML UDC NG SCH ×2 (09:22→17:33)
[2016-11-15] MEDS: AMLODIPINE BESYLATE 5 MG TABLET GT SCH (09:22)
[2016-11-15] MEDS: PANTOPRAZOLE 40 MG/PACK PACK GT SCH (09:23)
[2016-11-15] MEDS: MULTIVITAMINS,THERAGRAN 1 UDTAB TABLET GT SCH (09:23)
[2016-11-15] MEDS: ASPIRIN 81 MG TAB.CHEW PO SCH (09:23)
[2016-11-15] MEDS: BACLOFEN (10 MG) 10 MG TABLET GT SCH ×2 (09:23→17:33)
[2016-11-15] MEDS: SENNOSIDES/DOCUSATE SODIUM 1 TAB TABLET GT SCH (09:23)
[2016-11-15] MEDS: CARISOPRODOL 350 MG TABLET GT SCH ×2 (09:23→17:33)
[2016-11-15] MEDS: ASCORBIC ACID 500 MG TABLET GT SCH (09:24)
[2016-11-15] MEDS: MEROPENEM 1 G in IV NS 0.9% 100 ML IV SCH (09:32)
[2016-11-15] MEDS: Z GUARD REMEDY 2 OZ OINT TP SCH (09:33)
[2016-11-15] MEDS: HYDROGEL DRESSING 90 GM TUBE TP SCH (09:34)
--- NOTE | 2016-11-15 09:50 | NUR ---
F/C REMOVED FAMILY MADE AWRE PT. NEEDS TO VOID BEFORE DC.
[2016-11-15 16:00] VITALS: BP 145/76
--- NOTE | 2016-11-15 17:30 | NUR ---
WITH FLUSHING OF G-TUBE PT. INCONTINENT OF LRG. AMT. OF URINE.
--- NOTE | 2016-11-15 19:00 | NUR ---
HEP LOCK OUT.SON AND DTR. HERE,ALL PAPERS TOGETHER. AMBULANCE HERE RESOURCE CONSERVATION SPECIALIST GIVEN REPORT. TO TRANSPORT PT. TO FAMILIES HOME.DRIVERS MADE AWRE PT. ESBL OF URINE.
--- NOTE | 2016-11-15 19:20 | NUR ---
RN NOTES PATIENT ALERT, ORIENTED X2 W/ FAMILY AT BEDSIDE, TRANSPORT ELECTRIC GAS APPLIANCES DEMONSTRATOR W/ 2 EMT VIA GURNEY. ASSIST W/ REMOVING THE IV ON RIGHT HAND, TOLERATE AND REMOVE W/ NO S/S OF COMPLICATION. COVERED W/ GAUZE AND TAPE. ID BAND REMOVED. EDUCATED FAMILY REGARDING INFECTION CONTROL PRECAUTION. VERBALIZED UNDERSTANDING. PATIENT AND FAMILY WAS PROVIDED CARE. SAFELY DISCHARGE.
== END 2016-11-15 19:00 | disposition home health service (06) | DRG 871 ==
LOC: ER 18:48 → MED 20:59
PROVIDERS: ADMIT Internal Medicine; ATTEND Internal Medicine
DX: A41.9 Sepsis, unspecified organism (principal); R53.2 Functional quadriplegia; L89.159 Pressure ulcer of sacral region, unspecified stage; F03.90 Unspecified dementia, unspecified severity, without behavioral disturbance, psychotic disturbance, mood disturbance, and anxiety; B37.0 Candidal stomatitis; I69.851 Hemiplegia and hemiparesis following other cerebrovascular disease affecting right dominant side; N39.0 Urinary tract infection, site not specified; E78.5 Hyperlipidemia, unspecified; F32.9 Major depressive disorder, single episode, unspecified; Z16.12 Extended spectrum beta lactamase (ESBL) resistance; Z51.5 Encounter for palliative care; R13.10 Dysphagia, unspecified; Z66 Do not resuscitate; Z88.0 Allergy status to penicillin; Z93.1 Gastrostomy status; B96.20 Unspecified Escherichia coli [E. coli] as the cause of diseases classified elsewhere; I10 Essential (primary) hypertension; I25.10 Atherosclerotic heart disease of native coronary artery without angina pectoris; K59.00 Constipation, unspecified; M62.40 Contracture of muscle, unspecified site; Z79.899 Other long term (current) drug therapy; Z87.440 Personal history of urinary (tract) infections; Z74.01 Bed confinement status
CPT/HCPCS: 36415; 71010-TC; 80048-TC; 80053-TC; 80076-TC; 81000-TC; 83605-TC; 84443-TC; 84484-TC; 85025-TC; 85730-TC; 87040-TC; 87081-TC; 87086-TC; 87186-TC; A4216; A6248; J0743; J1650; J1885; J2060; J2185; J2270; J3490; J7030; J7040; J7050

== ENCOUNTER 2016-11-22 22:06 | Emergency (ER) | payer MEDICARE, OTHER ==
[~2016-11-22] VITALS: Ht 162.6 cm; Wt 63.5 kg
[~2016-11-22 22:06] MED LIST changes: +AMLO10TA2 GT; -AMLO10TA2 PO; -ATOR10TA PO; +CARI350T GT; -DOCU-170 PO; -DONE10TA44 PO; -FESO4TAB PO; +HYDR-548 GT; +LEVO500T90 GT; +LORA1TAB82 GT; -MEMA10TA PO; +MORP30TA GT; -OMEG500C PO; +OMEP40CA37 GT; +SULF1TAB48 GT; -TRAZ-144 PO; -TYL2T PO; -VITA400C19 PO; +[UNRECOGNIZED DRUG - CODE] GT
--- NOTE | 2016-11-22 22:08 | NUR ---
PT BIBRA TO ER BED 12. PER REPORT, CAREGIVER NOTED PT TO BE HELENA W/ HR IN THE LOW 50'S. PT PLACED ON MONITOR. STABLE VITALS COMMUNICATIONS REPRESENTATIVE. AWAITNG MD VARELA.
--- NOTE | 2016-11-22 22:36 | NUR ---
DR MULLER AT BEDSIDE FOR EVAL.
[2016-11-22 23:24] LABS: BASOPHILS % (AUTO) 0.4 % (0.0-2.0); EOSINOPHILS # (AUTO) 0.1 /CMM (0.0-0.7); EOSINOPHILS % (AUTO) 2.6 % (0.0-6.0); HEMATOCRIT 31 % (33-45); HEMOGLOBIN 10.6 g/dL (11.5-14.8); LYMPHOCYTES % (AUTO) 38.4 % (20.0-44.0); MEAN CORPUSCULAR HEMOGLOBIN 31 PG (26.0-33.0); MEAN CORPUSCULAR HGB CONC 34 g/dl (31.0-36.0); MEAN CORPUSCULAR VOLUME 91 fL (82-100); MONOCYTES # (AUTO) 0.3 /CMM (0.1-1.30); MONOCYTES % (AUTO) 12.8 % (2.0-12.0); NEUTROPHILS # (AUTO) 1.2 /CMM (1.8-8.9); NEUTROPHILS % (AUTO) 45.8 % (43.0-81.0); PLATELET COUNT (AUTO) 145 /CMM (150-450); RDW COEFFICIENT OF VARIATION 14.2 (11.5-15.0); RED BLOOD CELL COUNT(AUTO) 3.41 MIL/uL (4.0-5.2); WHITE BLOOD COUNT (AUTO) 2.6 K/uL (4.3-11.0)
--- NOTE | 2016-11-22 23:26 | NUR ---
PT TO RADIOLOGY FOR HEAD CT SCAN VIA [facility].
[2016-11-22 23:37] LABS: INR 0.95 (0.87-1.13); PROTHROMBIN TIME 9.9 SECS (9.5-12.7)
[2016-11-22 23:38] LABS: CALCIUM, SERUM 8.8 mg/dL (8.5-10.1); CARBON DIOXIDE 35 mmol/L (21-32); CHLORIDE 100 mmol/L (98-107); CREATININE 0.6 mg/dL (0.6-1.3); GLUCOSE 97 mg/dL (74-106); POTASSIUM 4.3 mmol/L (3.5-5.1); SODIUM SERUM 135 mmol/L (136-145); UREA NITROGEN, BLOOD 17 mg/dL (7-18)
[2016-11-22 23:43] LABS: ALANINE AMINOTRANSFERASE 25 U/L (12-78); ALBUMIN 3.4 g/dL (3.4-5.0); ALKALINE PHOSPHATASE 56 U/L (46-116); ASPARTATE AMINOTRANSFERASE 14 U/L (15-37); BILIRUBIN,DIRECT 0.1 mg/dL (0.0-0.2); BILIRUBIN,TOTAL 0.2 mg/dL (0.2-1.0); TOTAL PROTEIN, SERUM 6.6 g/dL (6.4-8.2)
[2016-11-22 23:46] LABS: TROPONIN I < 0.017 ng/mL (0.00-0.056)
--- NOTE | 2016-11-23 00:07 | NUR ---
TALKED TO PT'S DAUGHTER CRISTIANA STATING SHE IS IN CHARGE. DECIDED THEY WILL GO HOME. DR MULLER AWARE.
--- NOTE | 2016-11-23 01:18 | NUR ---
TALKED TO HUSSAIN FROM [facility] ETA IS 45MIN
[2016-11-23 02:45] VITALS: BP 106/63
--- NOTE | 2016-11-23 02:46 | NUR ---
PT REPORT GIVEN TO EMS, Patient discharged to home in stable condition. Written and verbal after care instructions given. Patient family verbalizes understanding of instruction.
== END 2016-11-23 02:48 | disposition home or self-care (01) ==
LOC: ER 22:08
DX: G93.40 Encephalopathy, unspecified (principal); R00.1 Bradycardia, unspecified; E78.5 Hyperlipidemia, unspecified; R51 Headache; F03.90 Unspecified dementia, unspecified severity, without behavioral disturbance, psychotic disturbance, mood disturbance, and anxiety; R79.1 Abnormal coagulation profile; I10 Essential (primary) hypertension; R41.82 Altered mental status, unspecified; Z51.5 Encounter for palliative care; Z79.82 Long term (current) use of aspirin; Z86.73 Personal history of transient ischemic attack (TIA), and cerebral infarction without residual deficits; Z88.0 Allergy status to penicillin; Z93.1 Gastrostomy status
CPT/HCPCS: 36415; 70450; 71010; 80048; 80076; 84484; 85025; 85730; 93005; 99285; A4606; J7040; Z7610

== ENCOUNTER 2017-04-04 18:10 | Emergency (ER) | payer MEDICARE, OTHER ==
[~2017-04-04] VITALS: Ht 165.1 cm; Wt 75.7 kg
[~2017-04-04 18:10] MED LIST changes: +LORA-259 GT; -LORA1TAB82 GT
--- NOTE | 2017-04-04 18:15 | NUR ---
[id number] FROM HOME: FEVER, LOW O2 SAT. PATIENT ON HOSPICE CARE. AOX 1. BREATHING EVEN AND UNLABORED ON 3L O2 VIA NC. NAD. VITALS STABLE. SAFETY AND COMFORT MEASURES IN PLACE. AWAITING MD ORDERS.
[2017-04-04 18:32] LABS: BASOPHILS % (AUTO) 0.4 % (0.0-2.0); EOSINOPHILS # (AUTO) 0.1 /CMM (0.0-0.7); EOSINOPHILS % (AUTO) 2.7 % (0.0-6.0); HEMATOCRIT 30 % (33-45); HEMOGLOBIN 10.3 g/dL (11.5-14.8); LYMPHOCYTES # (AUTO) 0.7 /CMM (0.8-4.8); LYMPHOCYTES % (AUTO) 14.3 % (20.0-44.0); MEAN CORPUSCULAR HEMOGLOBIN 32 PG (26.0-33.0); MEAN CORPUSCULAR HGB CONC 35 g/dl (31.0-36.0); MEAN CORPUSCULAR VOLUME 92 fL (82-100); MONOCYTES # (AUTO) 0.3 /CMM (0.1-1.30); NEUTROPHILS # (AUTO) 3.6 /CMM (1.8-8.9); NEUTROPHILS % (AUTO) 76.6 % (43.0-81.0); PLATELET COUNT (AUTO) 137 /CMM (150-450); RDW COEFFICIENT OF VARIATION 12.5 (11.5-15.0); RED BLOOD CELL COUNT(AUTO) 3.24 MIL/uL (4.0-5.2); WHITE BLOOD COUNT (AUTO) 4.7 K/uL (4.3-11.0)
[2017-04-04 18:42] LABS: CALCIUM, SERUM 8.4 mg/dL (8.5-10.1); CARBON DIOXIDE 35 mmol/L (21-32); CHLORIDE 103 mmol/L (98-107); CREATININE 0.6 mg/dL (0.6-1.3); GLUCOSE 98 mg/dL (74-106); POTASSIUM 4.3 mmol/L (3.5-5.1); SODIUM SERUM 137 mmol/L (136-145); UREA NITROGEN, BLOOD 18 mg/dL (7-18)
--- NOTE | 2017-04-04 18:51 | NUR ---
PT REFUSING CXR, ER IS AWARE.
[2017-04-04 19:41] VITALS: BP 98/68
--- NOTE | 2017-04-04 19:42 | NUR ---
Patient discharged to home with hospice. Written and verbal after care instructions given. Family verbalizes understanding of instruction.
== END 2017-04-04 19:41 | disposition home or self-care (01) ==
LOC: ER 18:13
DX: R06.02 Shortness of breath (principal); E78.5 Hyperlipidemia, unspecified; F03.90 Unspecified dementia, unspecified severity, without behavioral disturbance, psychotic disturbance, mood disturbance, and anxiety; I10 Essential (primary) hypertension; Z79.82 Long term (current) use of aspirin; Z86.73 Personal history of transient ischemic attack (TIA), and cerebral infarction without residual deficits; Z88.0 Allergy status to penicillin; Z99.81 Dependence on supplemental oxygen
CPT/HCPCS: 36415; 80048; 85025; 99284; A4606; Z7610